=== PATIENT | male | born 1950 | race Two or more races ===

== ENCOUNTER 2018-06-20 13:15 | Inpatient (IN) | payer OTHER ==
[~2018-06-20] VITALS: Ht 185.4 cm; Wt 99.8 kg
[~2018-06-20 13:15] MED LIST: CARBIDOPA-LEVO1 EAC4 PO; COZAAR100 MG PO; DITROPAN XL5 MG PO; GLIPIZIDE10 MG PO; METFORMIN HCL1000 M1 PO; TAMS0.4C PO; TOPROL XL100 M1 PO
== END 2018-07-03 19:00 | disposition home or self-care (01) | DRG 331 ==
LOC: SURG 07-01 05:40 → O/R 07-01 05:40 → SURG 07-01 11:43 → RECOVERY 07-01 12:00 → SURG 07-03 19:00
PROVIDERS: Colon & Rectal Surgery
PROC: 07TC4ZZ Resection of Pelvis Lymphatic, Percutaneous Endoscopic Approach (ICD-10-PCS; 2018-07-01)
PROC: 0DTP4ZZ Resection of Rectum, Percutaneous Endoscopic Approach (ICD-10-PCS; 2018-07-01)
PROC: 0DJD8ZZ Inspection of Lower Intestinal Tract, Via Natural or Artificial Opening Endoscopic (ICD-10-PCS; 2018-07-01)
PROC: 0DTN4ZZ Resection of Sigmoid Colon, Percutaneous Endoscopic Approach (ICD-10-PCS; principal; 2018-07-01 12:00)
DX: C20 Malignant neoplasm of rectum (principal); E11.9 Type 2 diabetes mellitus without complications; I11.9 Hypertensive heart disease without heart failure; G20 Parkinson's disease

== ENCOUNTER 2018-06-30 11:35 | Day surgery (SDC) | payer OTHER | END 2018-06-30 16:55 | disposition home or self-care (01) | LOC: AMB-ENDOS 11:35 | DX: C20 Malignant neoplasm of rectum (principal); K64.1 Second degree hemorrhoids ==

== ENCOUNTER 2019-07-10 06:51 | Day surgery (SDC) | payer OTHER | END 2019-07-10 13:45 | disposition home or self-care (01) | LOC: AMB-ENDOS 06:51 | DX: K64.1 Second degree hemorrhoids (principal) ==